=== PATIENT | male | born 1945 | race Caucasian/White ===

== ENCOUNTER 2022-02-27 09:17 | Day surgery (SDC) | payer MEDICARE, OTHER ==
[~2022-02-27 09:17] MED LIST: Lactated Ringers 1,000 ML IV SCH
--- NOTE | 2022-02-27 09:21 | HP ---
DATE OF SURGERY: 02/27/2022 HISTORY OF PRESENT ILLNESS: The patient is a 76-year-old with reflux, some dysphagia, food gets stuck lower esophagus. No prior upper endoscopy. Family history negative for esophageal cancer. It has been going on for some time. He is in need of upper endoscopy possible biopsy possible dilation. PAST MEDICAL HISTORY: Hyperlipidemia. Gastroesophageal reflux disease. Hypertension. Pneumonia in the past. Myocardial infarction. Prostate cancer. Arthritis. Depression. Vitamin B deficiency. PAST SURGICAL HISTORY: Coronary artery bypass graft open heart surgery. Back surgery. Prostate surgery in the past. MEDICATIONS: Sertraline, oxybutynin, metoprolol, meloxicam, levothyroxine, cyanocobalamin, cholecalciferol, atorvastatin. ALLERGIES: CEFTRIAXONE. CIPROFLOXIN. GABAPENTIN. PENICILLIN (ITCHING). STRAWBERRY. FAMILY HISTORY: Negative in regards to this problem. SOCIAL HISTORY: No smoking or alcohol abuse. REVIEW OF SYSTEMS: Fourteen systems reviewed. No chest pain or palpitations. Other systems negative or noncontributory as above and per preadmission questionnaire. PHYSICAL EXAMINATION: GENERAL: No acute distress. HEENT: Sclerae nonicteric. NECK: No JVD. CHEST: Equal excursion, nonlabored breathing. CVS: Regular rate and rhythm. ABDOMEN: Soft. No peritoneal signs. EXTREMITIES: No significant edema. NEURO: Alert, oriented, moving extremities symmetrically. PSYCH: Appropriate mood and affect. IMPRESSION: Dysphagia, needs upper endoscopy possible biopsy, possible dilatation. Risks and benefits explained in detail including but not limited to bleeding or infection, risk of bowel injury or perforation possibly requiring open procedure, risk of missed or nondiagnosis or incomplete exam possibly requiring barium swallow, other studies or procedures. General risk of anesthesia or sedation, but not limited to, possibility if he has the dilatation performed may improve his swallowing may need to be repeated down the road. There is possibility it could be more of a functional or neurologic issue and dilatation may not improve his swallowing and may need further work and/or testing, other studies or procedures. He understands and agrees to the planned procedure, will proceed with EGD possible biopsy possible dilatation as an outpatient under MAC anesthesia.
[2022-02-27] MEDS ORDERED: Lactated Ringers 1,000 ML IV ONE (10:01)
[2022-02-27] MEDS ORDERED: DIPRIVAN 200 MG/20 ML IV ONE (12:07)
[2022-02-27] MEDS ORDERED: Xylocaine-Mpf 2% 5 Ml Vial ONE (12:07)
[2022-02-27 13:47] VITALS: BP 147/78; PULSE 57
[2022-02-27 13:49] VITALS: O2SAT 97
--- NOTE | 2022-02-28 08:37 | OP ---
SURGERY DATE/TIME: 02/27/2022 1205 PREOPERATIVE DIAGNOSIS: History of dysphagia, need for upper endoscopy possible dilatation. POSTOPERATIVE DIAGNOSES: 1) Mild gastritis. 2) Distal esophageal narrowing and spasm, symptomatic. PROCEDURES: 1) EGD with cold biopsy to antrum to evaluate for Helicobacter pylori. 2) Cold biopsy distal esophagus to evaluate for microscopic inflammation. 3) Cold biopsy mid esophagus to evaluate for eosinophilic esophagitis. 4) Distal esophageal dilatation (size 20 balloon dilator). SURGEON: Dr. Andrzej White. ANESTHESIA: MAC. ESTIMATED BLOOD LOSS: Minimal. INDICATIONS: As noted above. Risks and benefits explained in detail and not limited to and consent was obtained. DESCRIPTION OF PROCEDURE AND FINDINGS: The patient is taken to the endoscopy room. MAC anesthesia introduced. After official time out and no disagreement with planned procedure, bite block positioned. Video gastroscope easily passed down the oropharynx into the proximal esophagus. He had some tertiary contractions of the esophagus. The distal esophagus is where he is having food get stuck was a little bit narrow but there is no evidence of any mass to biopsy. He has some slight pinkness. Cold biopsy taken to evaluate for microscopic inflammation. The scope passed through to the third portion of the duodenum. Third, second, first portion of the duodenum grossly unremarkable. Back in the stomach, he did have some mild gastritis and gastric erythema. Cold biopsy taken to evaluate for Helicobacter pylori. Good hemostasis noted. On retroflex, the gastroesophageal junction snug against the scope. No signs of any large hiatal hernia. The scope pulled back. The gastroesophageal junction about 40 cm. Cold biopsy taken to evaluate for some microscopic inflammation. There is no evidence of any Whittaker's. No evidence of any erosion. Good hemostasis noted. Cold biopsy is also taken in the mid esophagus to evaluate for eosinophilic esophagitis. Good hemostasis noted. The scope is passed back down the stomach. Given his symptomatic distal esophageal narrowing and spasm, a trial of balloon dilatation. A 20 balloon dilator carefully inserted in the stomach and pulled back up to the distal esophageal narrowing and gradually inflated. First stage 30 seconds, second stage 30 seconds, final stage size 20 balloon dilator for 2 minutes. Balloon catheter then released and withdrawn. The scope much more easily passed through this area. There is no evidence of any full thickness issues or injury secondary to dilatation. The scope is withdrawn. The patient tolerated the procedure well. There were no immediate complications.
== END 2022-02-27 13:50 | disposition home or self-care (01) ==
LOC: SDC 09:17
PROVIDERS: ATTEND Surgery
DX: K29.70 Gastritis, unspecified, without bleeding (principal); Z87.19 Personal history of other diseases of the digestive system; Z85.46 Personal history of malignant neoplasm of prostate; K22.4 Dyskinesia of esophagus
CPT/HCPCS: 99100; C1726; J2704